=== PATIENT | male | born 1985 | race Caucasian/White ===

== ENCOUNTER 2022-05-05 19:27 | Outpatient (CLI) | payer BC, SELFPAY ==
--- NOTE | 2022-05-26 13:43 | W.PM.SLEEP ---
Sleep Study Details Details Interpreting Provider: Richard Lara MD Date of Sleep Study: 05/05/22 Sleep Study Details: STUDY TYPE:? Home ? BMI:? Not recorded ORDERING PROVIDER:? Ramakrishna INDICATION:? Concerns about sleep apnea ? SLEEP SUMMARY:? 396 monitored minutes RESPIRATORY SUMMARY:? AHI 26, supine 43.2, left lateral 17.6, right lateral 16.6 Low oxygen 87 1.9% of study oxygen less than 90%, 0.1% of study oxygen less than 85% Snoring 0.3% PERIODIC LIMB MOVEMENTS OF SLEEP:? Not recorded CARDIAC:? 58-108, mean 73.4 IMPRESSION:? Moderate obstructive sleep apnea with supine position dependency RECOMMENDATION: Treatment options include AutoSet CPAP pressure 4-18, dental appliance and/or airway expansion surgery.
== END 2022-05-05 19:28 | disposition home or self-care (01) ==
LOC: SLEEP 19:27
PROVIDERS: PCP Family Medicine; Visit Provider Otolaryngology
DX: G47.19 Other hypersomnia (principal)
CPT/HCPCS: 95806

== ENCOUNTER 2023-03-22 08:19 | Outpatient (CLI) | payer BC, SELFPAY | END 2023-03-22 08:20 | disposition home or self-care (01) | LOC: NFLDREF 22:31 | PROVIDERS: PCP Family Medicine; Referring Provider Family Medicine; Visit Provider Family Medicine | DX: Z00.00 Encounter for general adult medical examination without abnormal findings (principal); E78.5 Hyperlipidemia, unspecified; E66.9 Obesity, unspecified; R03.0 Elevated blood-pressure reading, without diagnosis of hypertension | CPT/HCPCS: 80053; 80061 ==

== ENCOUNTER 2024-01-22 18:19 | Emergency (ER) | payer BC, SELFPAY ==
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
[2024-01-22 18:23] VITALS: BP 138/92; PULSE 106; RESP 18; TEMP 35.7; O2SAT 97; BMI 35.3
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
--- NOTE | 2024-01-22 19:52 | CRLHL7_ITS ---
For Patients: As a result of the Cures Act, medical imaging exams and procedure reports are released immediately into your electronic medical record. You may view this report before your referring provider. If you have questions, please contact your health care provider. Indication: LT HAND PAIN, 2ND DIGIT Technique: Three views of the left 2nd digit. Comparison: Same day wrist radiographs Findings/Impression: There is a minimally displaced avulsion fracture along the dorsal aspect of the base of the 2nd middle phalanx as seen on lateral view. There may be mild associated soft tissue swelling of the 2nd digit. Unchanged comminuted, nondisplaced intra-articular fracture present of the distal radius and unchanged ulnar styloid process fracture. Dictated by Angel Brewer MD @ 01/22/2024 9:09:05 PM (Electronically Signed)
[2024-01-22] MEDS: IBUPROFEN 600 MG TABLET PO (20:11)
== END 2024-01-22 20:41 | disposition home or self-care (01) ==
PROVIDERS: Emergency Provider Family Medicine; PCP Family Medicine
DX: S01.111A Laceration without foreign body of right eyelid and periocular area, initial encounter (principal); S52.501A Unspecified fracture of the lower end of right radius, initial encounter for closed fracture; S52.614A Nondisplaced fracture of right ulna styloid process, initial encounter for closed fracture; V19.3XXA Pedal cyclist (driver) (passenger) injured in unspecified nontraffic accident, initial encounter
CPT/HCPCS: 12013; 70450; 70486; 73110; 73130; 99284; A9270

== ENCOUNTER 2024-04-23 09:00 | Outpatient (RCR) | payer BC, SELFPAY ==
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
== END 2024-08-21 23:59 | disposition home or self-care (01) ==
PROVIDERS: PCP Family Medicine; Visit Provider Orthopaedic Surgery Sports Medicine
DX: S62.102A Fracture of unspecified carpal bone, left wrist, initial encounter for closed fracture (principal); Z51.89 Encounter for other specified aftercare
CPT/HCPCS: 97110; 97140; 97165; 97535; X5282